=== PATIENT | female | born 1975 | race Caucasian/White ===

== ENCOUNTER 2017-06-06 02:27 | Emergency (ER) | payer OTHER ==
[~2017-06-06] VITALS: Ht 172.7 cm; Wt 89.8 kg
--- NOTE | 2017-06-06 02:53 | NUR ---
PT AMBULATORY TO ER BED 4. PT BIB FAMILY C/O L SHOULDER PAIN THAT RADIATES INTO THE CHEST X 3 DAYS. PT VSS/RESP EVEN UNLABORED/NAD NOTED/SKIN WARM AND DRY/DENIES N-V-D/AFEBRILE/AOX4. AWAITING MD DE OLIVEIRA.
[2017-06-06] MEDS ORDERED: IBUPROFEN 400 MG TABLET PO ONE (03:00)
--- NOTE | 2017-06-06 03:00 | NUR ---
AT BEDSIDE FOR EVAL.
[2017-06-06] MEDS ORDERED: IBUPROFEN 400 MG TABLET ONE (03:02)
--- NOTE | 2017-06-06 03:09 | NUR ---
LAB AT BEDSIDE FOR DRAW.
[2017-06-06 03:20] LABS: BASOPHILS % (AUTO) 0.7 % (0.0-2.0); EOSINOPHILS # (AUTO) 0.2 /CMM (0.0-0.7); EOSINOPHILS % (AUTO) 3.1 % (0.0-6.0); HEMATOCRIT 34 % (33-45); HEMOGLOBIN 11.7 g/dL (11.5-14.8); LYMPHOCYTES # (AUTO) 2.5 /CMM (0.8-4.8); LYMPHOCYTES % (AUTO) 41.4 % (20.0-44.0); MEAN CORPUSCULAR HEMOGLOBIN 28 PG (26.0-33.0); MEAN CORPUSCULAR HGB CONC 34 g/dl (31.0-36.0); MEAN CORPUSCULAR VOLUME 82 fL (82-100); MONOCYTES # (AUTO) 0.4 /CMM (0.1-1.30); NEUTROPHILS # (AUTO) 2.8 /CMM (1.8-8.9); NEUTROPHILS % (AUTO) 47.8 % (43.0-81.0); PLATELET COUNT (AUTO) 326 /CMM (150-450); RDW COEFFICIENT OF VARIATION 14.7 (11.5-15.0); RED BLOOD CELL COUNT(AUTO) 4.19 MIL/uL (4.0-5.2)
--- NOTE | 2017-06-06 03:21 | NUR ---
XRAY AT BEDSIDE.
[2017-06-06 03:32] LABS: CALCIUM, SERUM 8.9 mg/dL (8.5-10.1); CARBON DIOXIDE 27 mmol/L (21-32); CHLORIDE 104 mmol/L (98-107); CREATININE 0.9 mg/dL (0.6-1.3); GLUCOSE 101 mg/dL (74-106); POTASSIUM 4.4 mmol/L (3.5-5.1); SODIUM SERUM 141 mmol/L (136-145); UREA NITROGEN, BLOOD 14 mg/dL (7-18)
[2017-06-06 03:39] LABS: TROPONIN I < 0.017 ng/mL (0.00-0.056)
[2017-06-06 03:41] LABS: D-DIMER 0.27 mg/L(FEU (0.17-0.50); INR 0.96 (0.87-1.13)
--- NOTE | 2017-06-06 04:26 | NUR ---
Patient discharged to home in stable condition. Written and verbal after care instructions given. Patient verbalizes understanding of instruction. Patient ambulatory with a steady gait.
[2017-06-06 04:27] VITALS: BP 141/89
== END 2017-06-06 04:28 | disposition home or self-care (01) ==
LOC: ER 02:29
DX: R07.89 Other chest pain (principal); M25.512 Pain in left shoulder
CPT/HCPCS: 36415; 71045; 80048; 84484; 85025; 85378; 85610; 93005; 99285; A4606; Z7610